=== PATIENT | female | born 1980 | race Two or more races ===

== ENCOUNTER → 2024-12-16 | Outpatient (CLI) | payer OTHER | LOC: M WHC 09:26 | PROVIDERS: ATTEND Student in an Organized Health Care Education/Training Program | DX: Z12.31 Encounter for screening mammogram for malignant neoplasm of breast (principal) ==

== ENCOUNTER → 2024-12-29 | Outpatient (CLI) | payer OTHER | LOC: M OUTALCOH 07:46 | PROVIDERS: ATTEND Psychiatry & Neurology Psychiatry | DX: F10.20 Alcohol dependence, uncomplicated (principal) ==

== ENCOUNTER 2025-01-05 09:51 | Outpatient (RCR) | payer OTHER | END 2025-01-11 | LOC: M OUTALCOH 09:51 | PROVIDERS: ATTEND Psychiatry & Neurology Psychiatry | DX: F10.20 Alcohol dependence, uncomplicated (principal) ==

== ENCOUNTER → 2025-02-11 | Outpatient (RCR) | payer OTHER | LOC: M OUTALCOH 01-12 09:55 | DX: F10.20 Alcohol dependence, uncomplicated (principal) ==